=== PATIENT | female | born 1995 | race Caucasian/White ===

== ENCOUNTER 2018-12-31 03:14 | Emergency (ER) | payer BC, OTHER ==
[~2018-12-31] VITALS: Ht 157.5 cm; Wt 100.0 kg
[2018-12-31 03:19] VITALS: Ht 157.5 cm; Wt 100.0 kg
[2018-12-31] MEDS ORDERED: IBUPROFEN 600 MG TAB PO ONE (04:00)
--- NOTE | 2018-12-31 04:20 | ERD ---
ER Documentation Chief Complaint Chief Complaint RT KNEE INJURY; S/P SLIP AND FALL HPI This is a 23-year-old female presents ED with right knee pain status post ground-level fall that occurred 1 hour prior to arrival in ED. Patient states that she was out walking with her boyfriend when she excellently slipped on some wet concrete injuring her right knee. Patient admits to painful range of motion and decreased range of motion. Admits to difficulty ambulating. Denies tingling, numbness, lack sensation. No known drug allergies. ROS All systems reviewed and are negative except as per history of present illness. Allergies Allergies: Coded Allergies: No Known Allergy (Unverified , 12/31/18) PMhx/Soc History of Surgery: Yes (Spinal tap 2yrs ago,Gallbladder 5yrs ago) Hx Alcohol Use: Yes Hx Substance Use: No Hx Tobacco Use: Yes Smoking Status: Current some day smoker FmHx Family History: No diabetes Physical Exam Vitals Vital Signs Date Temp Pulse Resp B/P (MAP) Pulse Ox O2 O2 Flow FiO2 Time Delivery Rate 12/31/18 99.9 81 18 139/71 99 03:19 (93) Physical Exam Physical Exam Vitals signs: Reviewed by me. General: Well developed, well nourished, in no acute distress. Patient is awake and alert. Head: Normocephalic, atraumatic. Eyes: Normal conjunctiva, Pupils PERRLA, EOM intact grossly Respiratory: Clear to auscultation bilaterally with no wheezing, rhonchi, rales, no distress Cardiovascular: RRR, no murmurs, rubs, or gallops MSK: No edema, no unilateral swelling, 5/5 strength Lower Extremity -right Skin: No laceration, swelling or evidence of external trauma Compartments: Soft Motor: Full active range of motion hip/knee/ankle/foot Sensation: Intact to light touch FDWS/MF/LF/P surfaces. Bones: Mild tenderness palpation along medial knee, nontender pelvis//proximal tibia/ malleoli/foot Joints: No effusion or laxity Skin: warm and dry, No rash Psych: Normal mood Results 24 hrs Current Medications Medications Dose Sig/Sj Start Time Status Last (Trade) Ordered Route PRN Stop Time Admin Dose Reason Admin Ibuprofen 600 mg ONCE ONCE 12/31/18 DC 12/31/18 (Motrin) PO 04:00 12/31/18 04:06 04:01 Procedures/MDM EKG, MONITORS, & DIAGNOSTIC IMAGING: [place] [address] Radiology Main Line: [phone] DIAGNOSTIC IMAGING REPORT Patient: CHING HAYWARD : 1995 Age: 23 Sex: F MR #: [id number] DOS: 12/31/18 0353 Ordering MD: NISA HARO PA-C Location: [facility] Room/Bed: PROCEDURE: Right knee x-ray CLINICAL INDICATION: Pain TECHNIQUE: AP, lateral, and oblique views of the right knee were obtained. COMPARISON: None FINDINGS: No acute fracture or dislocation is identified. The joint spaces are preserved. The regional soft tissues are within normal limits. IMPRESSION: No acute fracture or dislocation identified. RPTAT: HAP Admit-adrián Hercules Physician Date Time Electronically viewed and signed by Adi Hercules, Physician on 12/31/2018 05:10 AP/ CC: NISA HARO PA-C [id number] ER COURSE: The patient was given ibuprofen for pain The medication was well tolerated and the patient reports improvement in symptoms. The patient was stable throughout ED course. I kept the patient and/or family informed of laboratory and diagnostic imaging results throughout the emergency room course. The patient was promptly evaluated and a treatment plan was devised based on H&P and other data. This plan was discussed with the patient who agreed and had no further questions or concerns prior to discharge. MEDICAL DECISION MAKING: This is a 23-year-old female presents ED with right knee pain status post ground-level fall earlier today. X-rays are unremarkable. This is likely contusion or knee sprain. Patient was given Álvaro wrap and crutches to aid with ambulation. Advised to rice. History and physical examination other data not c onsistent with emergent processes including but not limited to fracture, dislocation, tendon rupture, ischemia, neurovascular injury, compartment syndrome, septic joint, avascular necrosis, osteomyelitis, necrotizing fasciitis, septic joint, septic arthritis, or other emergent conditions. Patient's vitals are stable and can be managed outpatient with close follow-up. Advised patient to follow-up with primary care in the next 48 hours. Return to ED with any worsening symptoms. DISPOSITION PLAN: We discussed follow up with the patient's primary care doctor within 24 to 48 hours. Patient counseled regarding my diagnostic impression and care plan. Prior to discharge all questions answered. Pt agrees with treatment plan and understands strict return precautions. Precautionary instructions provided including instructions to return to the ER if not improving or for any worsening or changing symptoms or concerns. SPECIALIST FOLLOW UP RECOMMENDED: None Patient has been advised to follow up with primary care in 1-2 days. Disclaimer: Inadvertent spelling and grammatical errors are likely due to EHR/dictation software use and do not reflect on the overall quality of patient care. Also, please note that the electronic time recorded on this note does not necessarily reflect the actual time of the patient encounter. Blood Pressure Assessment: Patient's blood pressure was elevated (>120/80) but appears stable without evidence of hypertension emergency or urgency. The patient was counseled about the risks of hypertension and urged to pursue outpatient monitoring and therapy within a week with their primary care physician. Departure Diagnosis: Primary Impression: Knee pain Chronicity: acute Laterality: right Qualified Codes: M25.561 - Pain in right knee Condition: Stable Patient Instructions: Knee Sprain Referrals: [facility] Additional Instructions: Patient advised to return to the ED immediately for new or worsening symptoms. Patient advised to follow up with primary care provider in the next 24-48 hours. Patient verbalized understanding and agrees with treatment plan and course of action. If patient has no primary care they may follow up with one of the community clinics listed on the following page or one of the options listed below [facility] + [facility] [address] [place] [id number] or [facility] [address] [place] [address] [address] NISA HARO PA-C Dec 31, 2018 04:20
[2018-12-31] MEDS ORDERED: IBUP-1542 PO (05:18)
== END 2018-12-31 05:35 | disposition home or self-care (01) ==
LOC: FTE 03:14
DX: M25.561 Pain in right knee (principal); F17.210 Nicotine dependence, cigarettes, uncomplicated
CPT/HCPCS: 73564; 99283; Z7610

== ENCOUNTER 2019-01-03 20:57 | Emergency (ER) | payer BC ==
[~2019-01-03] VITALS: Wt 92.8 kg
[~2019-01-03 20:57] MED LIST: IBUP-1542 PO
[2019-01-04] MEDS ORDERED: CEPH-443 PO (05:09)
[2019-01-04] MEDS ORDERED: SULF1TAB31 PO (05:09)
[2019-01-04] MEDS ORDERED: HYDR-4011 PO (05:10)
[2019-01-04] MEDS ORDERED: IBUP-1542 PO (05:10)
--- NOTE | 2019-01-10 18:43 | ERD ---
ER Documentation Chief Complaint Chief Complaint ABSCESS ON COCCYX X'S 10 DAYS HPI 23-year-old female patient with no significant past medical history presents to ED complaining of an abscess on her lower buttocks area that started about 10 days ago. Patient reports that it is a sharp type of sensation and rates it a 8 out of 10. Patient reports that when she sits on her lower buttocks area, it worsens the pain. Denies any fever, chills, nausea, vomiting, diarrhea, neck stiffness, bloody stools. ROS All systems reviewed and are negative except as per history of present illness. Medications Home Meds Active Scripts Hydrocodone/Acetaminophen ([place] 5-325 Tablet) 1 Each Tablet, 1 TAB PO QHS PRN for PAIN, #7 TAB Prov:ERIKA MOHAMUD-C 01/04/19 Ibuprofen* (Motrin*) 600 Mg Tab, 600 MG PO Q6, #30 TAB Prov:ERIKA MOHAMUD-C 01/04/19 Sulfamethoxazole/Trimethoprim* (Bactrim Ds* Tablet) 1 Each Tablet, 1 TAB PO BID for 7 Days, #14 TAB Prov:ERIKA MOHAMUD-C 01/04/19 Cephalexin* (Keflex*) 500 Mg Capsule, 500 MG PO QID for 7 Days, CAP Prov:ERIKA MOHAMUD-C 01/04/19 Ibuprofen* (Motrin*) 600 Mg Tab, 600 MG PO Q6, #30 TAB Prov:NISA HAROC 12/31/18 Allergies Allergies: Coded Allergies: No Known Allergy (Unverified , 12/31/18) PMhx/Soc History of Surgery: Yes (Spinal tap 2yrs ago,Gallbladder 5yrs ago) Hx Alcohol Use: Yes Hx Substance Use: No Hx Tobacco Use: Yes Smoking Status: Never smoker FmHx Family History: No diabetes, No coronary disease Physical Exam Vitals Temperature 97.8 Pulse 93 Systolic blood pressure 116 Diastolic blood pressure 64 Respiratory rate 18 O2 sat 100 Physical Exam Const: Aig-iux-svhayodlo, well-nourished. In no acute distress. Head: Atraumatic, normocephalic Eyes: Normal Conjunctiva without injection. No purulent discharge. ENT: Normal external ear, nose. Moist oropharynx without tonsillar exudates. Non-erythematous pharynx. Uvula midline. No drooling. No trismus. Neck: No cervical midline tenderness. Full range of motion. No meningismus. No cervical lymphadenopathy. No JVD. Resp: Clear to auscultation bilaterally. No wheezing, rhonchi, rales, or crackles. No accessory muscle use. No retractions. Cardio: Regular rate and rhythm. No murmurs, rubs or gallops. Abd: Soft, nontender, non distended. Normal bowel sounds. No palpable masses. No rebound tenderness. No guarding. Negative McBurney's point. Negative psoas sign. Negative obturator sign. Skin: No petechiae or rashes Back: No midline tenderness. No CVA tenderness. Ext: No cyanosis, or edema. Neur: Awake and alert. Normal gait. Normal coordination. Psych: Normal Mood and Affect Results 24 hrs Laboratory Tests Test 01/04/19 03:54 POC Beta HCG, Qualitative NEGATIVE Procedures/MDM 23-year-old female patient presents the ED for a buttocks abscess that started about 10 days ago. Patient is afebrile and nontoxic-appearing. Patient gave consent to perform incision and drainage. 11 blade scalpel used to make a small incision. Abscess Incision and Drainage with irrigation by me: Location: Pilonidal area Anesthesia: [5 cc Local 1% Lidocaine] Technique: [Irrigated. Disrupted loculations w/ instrumentation] Packin cm Complications: [Neurovascularly intact post procedure] Copious purulent discharge drained from the abscess. Keflex and Bactrim was prescribed to patient. Instructed patient to return to the ED sooner for any worsening symptoms. Follow up with primary care physician or return to the ED in 2 days for a wound check. Patient's questions were answered. Patient understood and agreed with discharge plan. Disclaimer: Inadvertent spelling and grammatical errors are likely due to EHR/dictation software use and do not reflect on the overall quality of patient care. Also, please note that the electronic time recorded on this note does not necessarily reflect the actual time of the patient encounter. Departure Diagnosis: Primary Impression: Infected pilonidal cyst Condition: Stable Patient Instructions: Pilonidal Cyst, Infected (Incision And Drainage) Referrals: BABAR PETERSEN MD (PCP) [facility] YOU HAVE RECEIVED A MEDICAL SCREENING EXAM AND THE RESULTS INDICATE THAT YOU DO NOT HAVE A CONDITION THAT REQUIRES URGENT TREATMENT IN THE EMERGENCY DEPARTMENT. FURTHER EVALUATION AND TREATMENT OF YOUR CONDITION CAN WAIT UNTIL YOU ARE SEEN IN YOUR DOCTORS OFFICE WITHIN THE NEXT 1-2 DAYS. IT IS YOUR RESPONSIBILITY TO MAKE AN APPOINTMENT FOR FOLOW-UP CARE. IF YOU HAVE A PRIMARY DOCTOR --you should call your primary doctor and schedule an appointment IF YOU DO NOT HAVE A PRIMARY DOCTOR YOU CAN CALL OUR PHYSICIAN REFERRAL HOTLINE AT IF YOU CAN NOT AFFORD TO SEE A PHYSICIAN YOU CAN CHOSE FROM THE FOLLOWING [facility] [address] [facility] [address] [facility]. [facility] [address] [facility] [address] [address] [facility]. [facility] [address] [facility]. [facility] YOU HAVE RECEIVED A MEDICAL SCREENING EXAM AND THE RESULTS INDICATE THAT YOU DO NOT HAVE A CONDITION THAT REQUIRES URGENT TREATMENT IN THE EMERGENCY DEPARTMENT. FURTHER EVALUATION AND TREATMENT OF YOUR CONDITION CAN WAIT UNTIL YOU ARE SEEN IN YOUR DOCTORS OFFICE WITHIN THE NEXT 1-2 DAYS. IT IS YOUR RESPONSIBILITY TO MAKE AN APPOINTMENT FOR FOLOW-UP CARE. IF YOU HAVE A PRIMARY DOCTOR --you should call your primary doctor and schedule and appointment IF YOU DO NOT HAVE A PRIMARY DOCTOR YOU CAN CALL OUR PHYSICIAN REFERRAL HOTLINE AT . IF YOU CAN NOT AFFORD TO SEE A PHYSICIAN YOU CAN CHOSE FROM THE FOLLOWING [facility]: [facility] [address] [place] [address] [facility] [address] [place] [address] [facility] [address] [place] [address] [facility]CIALTIES Additional Instructions: Call your primary care doctor TOMORROW for an appointment during the next 2-3 days for a referral to see a general surgeon.See the doctor sooner or return here if your condition worsens before your appointment time. Follow up in 2 days in your clinic for wound check and removal of packing. ERIKA MOHAMUD PA-C Jan 10, 2019 18:43
== END 2019-01-04 05:27 | disposition home or self-care (01) ==
LOC: FTE 20:57
DX: L05.01 Pilonidal cyst with abscess (principal); L08.9 Local infection of the skin and subcutaneous tissue, unspecified; Z87.891 Personal history of nicotine dependence
CPT/HCPCS: 81025

== ENCOUNTER 2019-01-07 06:14 | Emergency (ER) | payer BC ==
[~2019-01-07] VITALS: Ht 157.5 cm; Wt 92.4 kg
[~2019-01-07 06:14] MED LIST changes: +CEPH-443 PO; +HYDR-4011 PO; +SULF1TAB31 PO
[2019-01-07 06:19] VITALS: BP 118/69; PULSE 76; RESP 18; Ht 157.5 cm; Wt 92.4 kg
--- NOTE | 2019-01-07 07:10 | ERD ---
ER Documentation Chief Complaint Chief Complaint had i and d for pilonidal cyst 3 days ago, here today for wound check HPI 23-year-old female patient with no significant past medical history presents to ED for a wound check for her pilonidal cyst that she had 3 days ago. Patient reports that she has been taking her antibiotics consistently, Keflex, Bactrim. Patient denies any pain. Denies any fever, chills, nausea, vomiting, diarrhea, abdominal pain. Reports that she has been keeping it clean. ROS All systems reviewed and are negative except as per history of present illness. Medications Home Meds Active Scripts Hydrocodone/Acetaminophen ([place] 5-325 Tablet) 1 Each Tablet, 1 TAB PO QHS PRN for PAIN, #7 TAB Prov:ERIKA MOHAMUD PA-C 01/04/19 Ibuprofen* (Motrin*) 600 Mg Tab, 600 MG PO Q6, #30 TAB Prov:ERIKA MOHAMUD-C 01/04/19 Sulfamethoxazole/Trimethoprim* (Bactrim Ds* Tablet) 1 Each Tablet, 1 TAB PO BID for 7 Days, #14 TAB Prov:ERIKA MOHAMUDC 01/04/19 Cephalexin* (Keflex*) 500 Mg Capsule, 500 MG PO QID for 7 Days, CAP Prov:ERIKA MOHAMUD-C 01/04/19 Ibuprofen* (Motrin*) 600 Mg Tab, 600 MG PO Q6, #30 TAB Prov:NISA HARO PA-C 12/31/18 Allergies Allergies: Coded Allergies: No Known Allergy (Unverified , 12/31/18) PMhx/Soc History of Surgery: Yes (Spinal tap 2yrs ago,Gallbladder 5yrs ago) Hx Alcohol Use: Yes Hx Substance Use: No Hx Tobacco Use: Yes FmHx Family History: No diabetes, No coronary disease Physical Exam Vitals Vital Signs Date Temp Pulse Resp B/P (MAP) Pulse Ox O2 O2 Flow FiO2 Time Delivery Rate 01/07/19 98.1 76 18 118/69 100 06:19 (85) Physical Exam Const: Rlu-sxy-ooocmpjfy, well-nourished. In no acute distress. Head: Atraumatic, normocephalic Eyes: Normal Conjunctiva without injection. No purulent discharge. ENT: Normal external ear, nose. Moist oropharynx without tonsillar exudates. Non-erythematous pharynx. Uvula midline. No drooling. No trismus. Neck: No cervical midline tenderness. Full range of motion. No meningismus. No cervical lymphadenopathy. No JVD. Resp: Clear to auscultation bilaterally. No wheezing, rhonchi, rales, or crackles. No accessory muscle use. No retractions. Cardio: Regular rate and rhythm. No murmurs, rubs or gallops. Abd: Soft, nontender, non distended. Normal bowel sounds. No palpable masses. No rebound tenderness. No guarding. Negative McBurney's point. Negative psoas sign. Negative obturator sign. Skin: No petechiae or rashes. 1 cm vertical incision healing well and appropriately with packing gauze in place of previous pilonidal abscess. No surrounding erythema, edema, purulent discharge, fluctuance. Back: No midline tenderness. No CVA tenderness. Ext: No cyanosis, or edema. Neur: Awake and alert. Normal gait. Normal coordination. Psych: Normal Mood and Affect Procedures/MDM 23-year-old female patient with no significant past medical history presents to ED for a wound check for her pilonidal abscess that was drained 3 days ago. Patient is afebrile and nontoxic-appearing. Incision of pilonidal area is healing well and appropriately. At this time packing was removed, and patient tolerated procedure. No complications Low suspicion for sepsis, cellulitis, deep space infection, or other emergent conditions. Diagnosis: Encounter for wound recheck Follow up with primary care physician in 1-2 days referral to see general surgeon. Instructed patient to return to the ED sooner for any worsening symptoms. Patient's questions were answered. Patient is hemodynamically stable. Patient understood and agreed with discharge plan. Patient discharged stable. Disclaimer: Inadvertent spelling and grammatical errors are likely due to EHR/dictation software use and do not reflect on the overall quality of patient care. Also, please note that the electronic time recorded on this note does not necessarily reflect the actual time of the patient encounter. Departure Diagnosis: Primary Impression: Encounter for wound re-check Condition: Stable Patient Instructions: Wound Care, Pilonidal Cyst, Infected (Incision And Dr dean) Referrals: BABAR PETERSEN MD (PCP) [facility] YOU HAVE RECEIVED A MEDICAL SCREENING EXAM AND THE RESULTS INDICATE THAT YOU DO NOT HAVE A CONDITION THAT REQUIRES URGENT TREATMENT IN THE EMERGENCY DEPARTMENT. FURTHER EVALUATION AND TREATMENT OF YOUR CONDITION CAN WAIT UNTIL YOU ARE SEEN IN YOUR DOCTORS OFFICE WITHIN THE NEXT 1-2 DAYS. IT IS YOUR RESPONSIBILITY TO MAKE AN APPOINTMENT FOR FOLOW-UP CARE. IF YOU HAVE A PRIMARY DOCTOR --you should call your primary doctor and schedule an appointment IF YOU DO NOT HAVE A PRIMARY DOCTOR YOU CAN CALL OUR PHYSICIAN REFERRAL HOTLINE AT IF YOU CAN NOT AFFORD TO SEE A PHYSICIAN YOU CAN CHOSE FROM THE FOLLOWING [facility] [address] [facility]. [facility] [address] [facility] [facility]. [facility] [address] [facility]. [facility] [address] [facility]. [facility] [address] [facility]. [facility] [address] [facility]. [facility] YOU HAVE RECEIVED A MEDICAL SCREENING EXAM AND THE RESULTS INDICATE THAT YOU DO NOT HAVE A CONDITION THAT REQUIRES URGENT TREATMENT IN THE EMERGENCY DEPARTMENT. FURTHER EVALUATION AND TREATMENT OF YOUR CONDITION CAN WAIT UNTIL YOU ARE SEEN IN YOUR DOCTORS OFFICE WITHIN THE NEXT 1-2 DAYS. IT IS YOUR RESPONSIBILITY TO MAKE AN APPOINTMENT FOR FOLOW-UP CARE. IF YOU HAVE A PRIMARY DOCTOR --you should call your primary doctor and schedule and appointment IF YOU DO NOT HAVE A PRIMARY DOCTOR YOU CAN CALL OUR PHYSICIAN REFERRAL HOTLINE AT . IF YOU CAN NOT AFFORD TO SEE A PHYSICIAN YOU CAN CHOSE FROM THE FOLLOWING [facility] [place] INSTITUTIONS: [facility] [address] [place] [address] [facility] [address] [place] [address] [facility] + [facility] [address] [place] [address] [facility]/SPECIALTIES [facility] Additional Instructions: Call your primary care doctor TOMORROW for an appointment during the next 2-3 days.See the doctor sooner or return here if your condition worsens before your appointment time. ERIKA MOHAMUD PA-C Jan 07, 2019 07:07
== END 2019-01-07 07:25 | disposition home or self-care (01) ==
LOC: FTE 06:14
DX: Z48.01 Encounter for change or removal of surgical wound dressing (principal)
CPT/HCPCS: 99281